=== PATIENT | male | born 1950 | race Caucasian/White ===

== ENCOUNTER 2024-11-28 05:29 | Observation (INO) ==
--- NOTE | 2024-11-06 10:28 | PAT Medication Instructions ---
Medication Instructions Date of Service November 06, 2024 Home Medications atorvastatin 10 mg tablet 10 mg PO QPM gabapentin 600 mg tablet 600 mg PO QID ropinirole 0.25 mg tablet 0.25 mg PO HS diclofenac sodium 75 mg tablet,delayed release 75 mg PO BID amandeep 1 tab PO QAM saw palmetto 1 tab PO QAM selenium 1 tab PO QAM ASK your surgeon for instructions diclofenac sodium 75 mg tablet,delayed release 75 mg PO BID STOP taking 2 weeks before surgery (or as soon as possible if surgery is within 2 weeks) amandeep 1 tab PO QAM saw palmetto 1 tab PO QAM selenium 1 tab PO QAM Take morning of surgery With a small sip of water, OTHERWISE NOTHING TO EAT OR DRINK AFTER MIDNIGHT: gabapentin 600 mg tablet 600 mg PO QID Take evening before surgery atorvastatin 10 mg tablet 10 mg PO QPM gabapentin 600 mg tablet 600 mg PO QID ropinirole 0.25 mg tablet 0.25 mg PO HS Other Notes If you have any questions please call us at [phone] or [phone] or [phone] or [phone]
--- NOTE | 2024-11-11 08:21 | Anesthesiology Consultation ---
Date of Service November 11, 2024 Assessment & Plan (1) Encounter for pre-operative examination: - hyperkalemia at 5.5: Patient will need [facility] PCP clearance prior to surgery. Optimization form and PAT testing to be faxed to [facility] PCP, Dr. Johann Parker. Surgeon's office made aware. I also called [facility] PCP office and they will notify provider today. - Outpatient joint assessment: Patient is currently scheduled for inpatient pathway. If re-evaluated and patient/surgeon requests outpatient pathway, patient is not a candidate for outpatient joint program. Chart Review Chart Review: Pending: Refer to Additional Notes / Consult section and Patient seen in Pre Admission Testing Teaching & Discussion Pre-Anesthesia Teaching/Discussion Notes: Instructed NPO after midnight before surgery, except medications with 15 cc of water. Medication instructions provided according to the PAT guidelines. History Surgery Operation Date: 11/28/24 07:00 Proposed Procedures p Left Total Knee Arthroplasty - Paul Fox MD Height/Weight Height: 5 ft 7 in Weight: 71 kg Allergies Allergy/AdvReac Type Severity Reaction Status Date / Time No Known Allergies Allergy Verified 10/29/24 10:16 Medications Home Medications Medication Instructions Recorded Confirmed Last Taken atorvastatin 10 mg tablet 10 mg PO QPM 10/28/24 10/29/24 Unknown gabapentin 600 mg tablet 600 mg PO QID 10/28/24 10/29/24 Unknown ropinirole 0.25 mg tablet 0.25 mg PO HS 10/28/24 10/29/24 Unknown diclofenac sodium 75 mg 75 mg PO BID 10/29/24 10/29/24 Unknown tablet,delayed release amandeep 1 tab PO QAM 10/29/24 10/29/24 Unknown saw palmetto 1 tab PO QAM 10/29/24 10/29/24 Unknown selenium 1 tab PO QAM 10/29/24 10/29/24 Unknown Past Medical History Medical History Hx of hyperlipidemia "Borderline" Osteoarthritis of left knee RLS (restless legs syndrome) Patient denies h/o stroke, seizures, heart attack, heart failure, DM, HTN, blood clots/DVTs or blood transfusions. Exercise / Class Metabolic Activity II 4-5 Yardwork/Stairs/Walk up hill (denies chest discomfort or shortness of breath with one flight of stairs) Past Surgical History Surgical History History of meniscectomy of left knee Hx of colonoscopy (2023) Hx of spinal fusion (2018) C3-C6 ROM "good" S/P decompression of ulnar nerve at elbow R/L Past Anesthesia History No Hx of Anesthesia Complications and No Family Hx of Anesthesia Complications History of PONV No Hx of PONV and No Hx of Motion Sickness Social History Smoking Status: Former smoker Do You Dip or Chew Tobacco: No Smoking End Date: 30+ years ago Hx Alcohol Use: Yes Alcohol type: wine alcohol intake frequency: 0-2 drinks per day Alcohol Intake Frequency Comment: 1 glass/nightly Hx Substance Use: No substance use type: does not use Review of Systems Snoring, denies witnessed apneas. Patient denies chest pain, shortness of breath, dyspnea on exertion, reflux, fever, chills, cough, wheezing, or palpitations. Physical Exam Vital Signs Vitals BP 156/91 P 67 TEMP 97.9 SP02 99% on RA RESP 17 Physical Patient resting comfortably in chair in no acute distress, alert and oriented, responding appropriately throughout visit Full cervical extension range of motion without pain TMD 3.5 finger breadths Mallampati Score 2 Dentition: several crowns and upper front permanent bridge, denies chipped or loose teeth, or implants Lungs: normal respiratory effort. Good air movement, clear throughout to auscultation, no adventitious breath sounds Cardiac: regular rate and rhythm, no murmurs noted Carotid arteries: negative bruit bilat Lab Results Anesthesia Preop Results Results Anesthesia Widget: WBC 6.91 K/ul (4.8-10.8) 11/11/24 Hgb 14.0 g/dl (14.0-18.0) 11/11/24 Hct 41.3 % (42.0-52.0) L 11/11/24 Plt 239 K/uL (130-400) 11/11/24 Na 138 mmol/L (136-145) 11/11/24 K 5.5 mmol/L (3.5-5.1) H 11/11/24 Cl 103 mmol/L (98-107) 11/11/24 CO2 32 mmol/L (21-32) 11/11/24 BUN 13 mg/dl (6-23) 11/11/24 Creat 0.90 mg/dl (0.6-1.4) 11/11/24 Glucose Level 107 mg/dl (70-99(Fasting)) H 11/11/24 PT 11.5 Seconds (9.0-12.0) 11/11/24 PTT 28 Seconds (21-31) 11/11/24 INR 1.1 (0.9-1.1) 11/11/24 Blood Type A Positive 11/11/24 Antibody Screen NEGATIVE 11/11/24 Testing Electrocardiogram Date: 11/11/24 NSR, rate 65 bpm Chest X-Ray Date: 11/11/24 No acute findings. There is mild apical pleural thickening.
--- NOTE | 2024-11-25 17:51 | History & Physical Report ---
Date of Service November 25, 2024 Assessment & Plan (1) Osteoarthritis of left knee: 74-year-old gentleman with history of a knee arthroscopy in the past. Rants left knee DJD. Failed conservative treatment. He would like to have his left knee replaced. Plan: We discussed treatment option with the patient and he would like to proceed with left knee replacement. Risks and minutes of left total knee replacement were explained. Will proceed as planned. Will plan using aspirin for DVT prophylaxis. He is planning discharge to home. His daughter lives with him and can assist in his care. (2) Hx of hyperlipidemia: (3) RLS (restless legs syndrome): History of Present Illness Chief Complaint: . Left knee pain, discomfort, and instability Primary Care Provider: Judd Simon MD . The patient is a 74-year-old gentleman referred by Dr. Capellan for definitive treatment of the left knee. He has got a long history of left knee pain discomfort followed by [facility] and Dr. Rosales Hahn in the past. Has been through extensive conservative treatment including injections which have become less successful over time. Scribes most of the pain lateral but also a sense of instability. Gives out on him intermittently. He is concerned about falling. He does have a history of a knee scope done about 10 years ago. Allergies Allergy/AdvReac Type Severity Reaction Status Date / Time No Known Allergies Allergy Verified 10/29/24 10:16 Home Medications Medication Instructions Recorded Confirmed Type atorvastatin 10 mg tablet 10 mg PO QPM 10/28/24 10/29/24 History gabapentin 600 mg tablet 600 mg PO QID 10/28/24 10/29/24 History ropinirole 0.25 mg tablet 0.25 mg PO HS 10/28/24 10/29/24 History diclofenac sodium 75 mg 75 mg PO BID 10/29/24 10/29/24 History tablet,delayed release amandeep 1 tab PO QAM 10/29/24 10/29/24 History saw palmetto 1 tab PO QAM 10/29/24 10/29/24 History selenium 1 tab PO QAM 10/29/24 10/29/24 History Past Med/Surg History Problem List Encounter for pre-operative examination Ulnar neuropathy of both upper extremities Medical History RLS (restless legs syndrome) Osteoarthritis of left knee Hx of hyperlipidemia "Borderline" Surgical History S/P decompression of ulnar nerve at elbow R/L History of meniscectomy of left knee Hx of colonoscopy (2023) Hx of spinal fusion (2019) C3-C6 ROM "good" Social History Smoking Status: Former smoker Second Hand Exposure: No; Do You Dip or Chew Tobacco: No; Hx Alcohol Use: Yes Alcohol type: wine Hx Substance Use: No Preferred Language: French Communication Ability: Effective Dent Remover Required: No Beliefs That Will Affect Care: None Current Living Situation: Family Feels Safe at Home: Yes Assistive Devices: Glasses and Hearing Aid - Bilateral Review of Systems All systems reviewed & are unremarkable except as noted in HPI & below. Physical Exam . Physical examination reveals a pleasant healthy-appearing middle-aged gentleman. Examination of the left knee reveal patient walks with a slight bit of a limp. Got valgus alignment to his knee which is a little bit exacerbated on weightbearing. He is tender over the lateral joint line. Minimal knee effusion. Range of motion 5-1 25. No pain with hip motion. He is neurologically intact. Constitutional WD/WN, vitals as above Respiratory normal respiratory effort, lungs clear to auscultation Cardiovascular RRR, no murmur, no edema Gastrointestinal (Abdomen) normal bowel sounds, soft, nontender, no hepatosplenomegaly Results & Data Results & Data Laboratory Results . Diagnostic Findings . X-rays of the left knee were reviewed. Shows advanced left knee lateral compartment DJD. Got complete loss of his lateral joint space. He has got osteophytes off the lateral tibial plateau and lateral femoral condyle. Significant patellofemoral disease as well. PG Care Time/CCT Total # of Minutes Spent Total Time Spent with Patient: Total time spent is greater than 50% in coordination of care (as documented) at patient's floor/unit and/or counseling patient: Coding Level of Care Code None Diagnoses Osteoarthritis of left knee M17.12 Hx of hyperlipidemia Z86.39 RLS (restless legs syndrome) G25.81
[2024-11-28] MEDS: METOCLOPRAMIDE HCL 10 MG TABLET PO SCH (05:58)
[2024-11-28] MEDS: ACETAMINOPHEN 500 MG TAB PO SCH ×2 (05:58→10:16)
[2024-11-28] MEDS: CeleBREX 200 MG CAP PO SCH (05:58)
[2024-11-28] MEDS: dexAMETHasone**PF** 10 MG/ML VIAL IV SCH (05:58)
[2024-11-28] MEDS: FAMOTIDINE 20 MG TAB PO SCH (05:58)
[2024-11-28] MEDS: LR 15ML/HR IV SCH (05:59)
[2024-11-28] MEDS: LR 60ML/HR IV SCH (05:59)
[2024-11-28] MEDS ORDERED: PROPOFOL IV EMULSION 10 MG/ML 20 ML VIAL IV ONE ×2 (06:29→06:37)
[2024-11-28] MEDS ORDERED: ONDANSETRON INJ 2 MG/ML 2 ML VIAL ONE ×2 (06:29→06:37)
[2024-11-28] MEDS ORDERED: DEXAMETHASONE SOD INJ 4 MG/ML VIAL ONE (06:29)
[2024-11-28] MEDS ORDERED: MIDAZOLAM HCL 1 MG/ML 2ML VIAL ONE ×2 (06:30→06:36)
[2024-11-28] MEDS ORDERED: ROPIVACAINE 0.5% 5 MG/ML 30 ML VIAL ONE (06:35)
[2024-11-28] MEDS ORDERED: DexMEDEtomidine HCL IV 100 MCG/ML VIAL IV ONE (06:36)
[2024-11-28] MEDS ORDERED: LIDOCAINE 2% 2 ML VIAL/AMP(20MG/ML) INFIL ONE (06:37)
--- NOTE | 2024-11-28 06:49 | History & Physical Bridge Note ---
Date of Service November 28, 2024 History & Physical Bridge Note I have examined the patient, reviewed the History & Physical and in the interval since the performance of the History & Physical I have noted the following changes of clinical significance: no changes noted
[2024-11-28] MEDS ORDERED: ONDANSETRON INJ 2 MG/ML 2 ML VIAL IV PRN ×2 (07:25→09:59)
[2024-11-28] MEDS ORDERED: ATROPINE SULFATE 0.1 MG/ML 10ML SYR IV PRN (07:25)
[2024-11-28] MEDS: ROPIV 0.5% 246mg, Ketorolac 30mg, EPINEPHrine 0.5mg in NSS INFIL SCH (07:33)
[2024-11-28] MEDS: ORTHO JOINT ANESTHETIC ONE (07:33)
--- NOTE | 2024-11-28 09:11 | Operative Report ---
PG Post Operative Report Pre & Post Diagnosis Operation Date: 11/28/24 07:00 Pre-Op Diagnosis: Left Knee Osteoarthritis Post-Op Diagnosis: Left Knee Osteoarthritis I identified the patient and participated in the time-out.: Yes Procedure Operation Date: 11/28/24 07:00 Actual Procedures p Left Total Knee Arthroplasty(Left) - Paul Fox MD Surgeon Paul Fox MD Race Starter Navid Shaikh PA-C Estimated Blood Loss 50 Findings Consistent with Post-Op Diagnosis Operative findings reveal advanced left knee DJD. He had extensive grade 4 [id number] disease of the lateral and patellofemoral compartments. He had a fixed valgus deformity to his knee. Moderate-sized knee effusion. Osteophytes primarily laterally. Specimens Left knee sent for pathology. Anesthesia Type Spinal MAC Complications none Disposition Accompanied Patient To Recovery: No Indications The patient is a 74-year-old gentleman has had a long history of gradually progressive increasing left knee pain discomfort and deformity. He failed conservative measures. X-rays reveal advanced left knee lateral compartment DJD. He elected proceed with left total knee arthroplasty. Description of Procedure Operative implants consist of: 1. Biomet Vanguard size 67.5 left posterior stabilized femoral component. 2. Biomet size 71 tibial tray. 3. 10 mm posterior stabilized polyethylene insert. 4. 31 x 8 all poly patella. The patient was taken the op room, identified, placed on the operating table in the supine position. All contact areas were appropriately padded. IV antibiotics arrived by anesthesia team. A spinal anesthetic and adductor canal block had been provided in the holding area. A left phytate was then placed. Left lower extremity was then prepped and draped in usual sterile fashion. The left leg was elevated and exsanguinated with use of an Esmarch and the toe was placed 300 mmHg. An anterior approach left knee was then performed to longitudinal incision centered over the patella. Sharp dissection was carried through subcutaneous tissue down to the extensor mechanism. A medial parapatellar arthrotomy incision made. Some subperiosteal dissection was carried out medially. The fat pad was dissected beneath patella tendon. The lateral patellofemoral ligament was released. Patella subluxated laterally and the knee was flexed. The osteophytes taken off distal femur. ACL and PCL were then released from distal femur and the tibia subluxated anteriorly. The external tibial alignment jig was then placed in the anterior face of the tibia and adjusted 12 mm medially. Proximal tibial cut was made removed 3 to 4 mm of bone from medial side. Tibia sized to size 71. We did downsize this in order to get appropriate rotation. Attention drawn the femur. The distal femur examined the sharp drill. Intramedullary canal was suction. A left 5 degree valgus cutting guide was placed. The distal femoral cutting block was pinned in place. This femoral cut was made to take an additional 3 mm of bone off distal femur. The knee was then brought out in extension I did release some of the lateral and posterolateral capsule and IT band in order to equalize extension gap hip. Great care was taken to protect the peroneal nerve at all times. The knee was then flexed. The femur was then sized to a size 67.5. The AP cutting block was pinned parallel to the epicondylar axis which was 8 degrees of external rotation. He had quite a bit of hypoplasia of the lateral condyle. The AP and chamfer cuts were then made. Good block cutting guide was then placed and adjusted slightly laterally. The box cut was made. The knee was flexed. The remnants of the medial and lateral menisci were excised. The osteophytes taken off the posterior aspect of femur. A trial femoral component was placed. I did also release the popliteus in order to equalize the flexion gap. The tibial tray was then pinned in Wnidy external rotation and the drill and stem punch used to create defect in proximal tibia for the tibial tray. Knee was then trialed and the 10 mm insert fit most appropriately. Attention drawn the patella. The patella was cleaned of all soft tissue. Patella thickness measured 24 mm in thickness was cut down to 15. Was sized to a size 31 patella. The lug holes were drilled for 31 patella. The lateral osteophyte was removed. Patella button was placed. Knee was taken through range of motion patella tracked nicely with no thumbs test. Attention jointer placed in permanent components. All trial components were removed. Bone plug was placed and this filled femur to limit blood loss. A double batch Palacos G cement was mixed. BiomNeocoretechard size 67.5 left posterior stabilized femoral component, size 71 tibial tray, 10 mm posterior by polyethylene insert, and a 31 x 8 all poly patella then cemented in place. The knee was brought out into full extension till cement hardened. Final cement check was then performed. Pericapsular tissues were injected with a total of 100 cc of Ortho mix. Patient did receive 1 g tranexamic acid. The tourniquet was then let down for final tourniquet time 61 minutes. Hemostasis assured with electrocautery. Extensor Meclomen closed combination 1 PDS suture and #1 Vicryl suture in a [id number] fashion. Extensor Meclomen checked to be intact. Subcutaneous tissue was then closed with 2 Dexon suture in a buried interrupted fashion skin was closed skin neftali. Leg was then cleaned and dried and a sterile dressing with Xeroform, 4 fours, sterile cast padding and Reymundo bandage were applied. Patient then transferred to the recovery room in stable condition. Patient tolerated procedure well and there were no complications. Navid Shaikh, my physician assistant professor of german, was present for the entire procedure. His assistance was required for proper patient positioning, prepping and draping, surgical exposure, retraction, perform the technical details of the operation, placement of the implants, closure of the incision and placement of postoperative sterile bandage. I attest to the content of the Intraoperative Record and any orders documented therein. Any exceptions are noted below.
--- NOTE | 2024-11-28 09:31 | XRay Report ---
XR knee LT 1 or 2V routine CLINICAL HISTORY: Surgical Post Op COMPARISON: None FINDINGS: Left knee prosthesis shows no hardware complication. There is expected soft tissue gas. Sk in neftali are present. IMPRESSION: Unremarkable postoperative exam. ACT 112: Negative or not required by law. Electronically signed by: Román Villafana M.D. 11/28/2024 9:29 AM
--- NOTE | 2024-11-28 09:54 | Anesthesiology Progress Note ---
Date of Service November 28, 2024 Anesthesia Post Procedure Vital Signs Vital Signs: Temp Pulse Pulse Resp BP Pulse Ox O2 Del Method 11/28/24 09:40 36.3 C L 72 16 118/64 98 Room Air 11/28/24 09:30 36.3 C L 75 16 115/67 99 Room Air 11/28/24 09:20 78 14 119/63 99 Room Air 11/28/24 09:10 75 15 117/64 98 Room Air 11/28/24 09:00 77 15 115/65 100 Oxymask 11/28/24 08:53 36.5 C 74 15 94/54 L 98 Oxymask 11/28/24 05:47 36.6 C 67 18 158/84 H 98 Room Air O2 Flow Rate 11/28/24 09:40 11/28/24 09:30 11/28/24 09:20 11/28/24 09:10 11/28/24 09:00 5 11/28/24 08:53 5 11/28/24 05:47 Transfer of Care Handoff Completed per policy Notes Mental Status: alert / awake / arousable Patient Amnestic to Procedure: Yes Nausea / Vomiting: adequately controlled Pain: adequately controlled Airway Patency, RR, SpO2: stable & adequate BP & HR: stable & adequate Hydration State: stable & adequate Neuraxial Anesthesia: sensory block is resolving Anesthetic Complications: no major complications apparent
[2024-11-28] MEDS ORDERED: HYDROmorphone INJ 0.5 MG/0.5 ML SYR IV PRN (09:59)
[2024-11-28] MEDS ORDERED: ALUMINUM/MAGNESIUM SUSP 30 ML UDC PO PRN (09:59)
[2024-11-28] MEDS ORDERED: NALOXONE HCL 0.4 MG/1 ML VIAL/CARP IV PRN (09:59)
[2024-11-28] MEDS ORDERED: METOCLOPRAMIDE HCL INJ 5 MG/ML 2 ML VIAL IV PRN (09:59)
[2024-11-28] MEDS ORDERED: SAW PALMETTO PO SCH (09:59)
[2024-11-28] MEDS ORDERED: MACA PO SCH (09:59)
[2024-11-28] MEDS ORDERED: SELENIUM PO SCH (09:59)
[2024-11-28] MEDS ORDERED: MAGNESIUM HYDROXIDE SUSP 30 ML UDC PO PRN (09:59)
[2024-11-28] MEDS: SODIUM CHLORIDE 0.9% 1,000 ML IV SCH (10:16)
[2024-11-28] MEDS: GABAPENTIN 600 MG TAB PO SCH (10:54)
[2024-11-28] MEDS: ASPIRIN 81 MG ECTAB PO SCH (10:54)
[2024-11-28] MEDS: TAMSULOSIN HCL 0.4 MG CAP PO SCH (10:55)
[2024-11-28] MEDS: SENNA 8.6 MG TAB PO SCH (10:56)
[2024-11-28] MEDS: KETOROLAC TROMETHAMINE 15 MG/ML VIAL IV SCH (10:56)
[2024-11-28] MEDS: TRANEXAMIC ACID / 0.7% NACL 1,000 MG/100 ML BAG IV SCH (14:44)
[2024-11-28] MEDS: ASCORBIC ACID 500 MG TAB PO SCH (16:18)
[2024-11-28] MEDS ORDERED: SENNA 8.6 MG TAB PO SCH (21:00)
[2024-11-28] MEDS: DOCUSATE SODIUM 100 MG CAP PO SCH (21:32)
[2024-11-28] MEDS: ATORVASTATIN 10 MG TAB PO SCH (21:32)
[2024-11-29 07:31] LABS: Hematocrit (blood only) 30.9 % (42.0-52.0); Hemoglobin 11.0 g/dl (14.0-18.0); Mean Corpuscular Hemoglobin 33.0 pg (25.0-34.0); Mean Corpuscular Volume 92.8 fL (80.0-100.0); Platelet Count 209 K/uL (130-400); RDW Standard Deviation 42.6 fL (36.4-46.3); Red Blood Count 3.33 M/uL (4.70-6.10); White Blood Count 13.53 K/ul (4.8-10.8)
[2024-11-29] MEDS: dexAMETHasone 10 MG in SYRINGE 0 ML IV SCH (07:35)
[2024-11-29 07:51] LABS: Anion Gap 4.0 (3-11); Blood Urea Nitrogen 19.0 mg/dl (6-23); Calcium 8.6 mg/dl (8.6-10.3); Carbon Dioxide 27.0 mmol/L (21-32); Chloride 105.0 mmol/L (98-107); Creatinine Clr Calc Pharmacy 58.2 ml/min; Glucose 117.0 mg/dl (70-99(Fasting)); Potassium 4.7 mmol/L (3.5-5.1); Sodium 136.0 mmol/L (136-145)
[2024-11-29] MEDS: MULTIVITAMIN TAB PO SCH (08:31)
[2024-11-29] MEDS: INFLUENZA VACC TS2025-26(65y+)/PF (IIV3) 0.5mL Syr IM ONE (09:54)
== END 2024-11-29 11:46 | disposition home health service (06) ==
LOC: ASU 05:29 → 3N 05:29